=== PATIENT | male | born 1955 ===

== ENCOUNTER 2017-07-07 06:01 | Emergency (ER) | payer BC ==
[2017-07-07 07:42] LABS: Urine Appearance Clear; Urine Blood Negative (Negative); Urine Color Yellow; Urine Ketones Negative (Negative); Urine Protein Negative (Negative); Urine Specific Gravity 1.015 (1.010-1.030); Urine Urobilinogen Negative (Negative)
[2017-07-07 07:51] LABS: ABS Basophils 0.1 10^3/ul (0-0.2); ABS Eosinophils 0.2 10^3/ul (0-0.6); ABS Lymphocytes 0.9 10^3/ul (1.0-4.8); ABS Monocytes 0.6 10^3/ul (0-0.8); ABS Neutrophils 5.5 10^3/ul (1.5-7.7); ABS Nucleated RBC 0 10^3/ul; Eosinophil % 2.3 % (0-6); Hematocrit 41 % (42-52); Hemoglobin 14.2 g/dl (14.0-18.0); Lymphocyte % 12.9 % (25-47); Mean Corpuscular HGB Conc 35 g/dl (31-36); Mean Corpuscular Hemoglobin 32 pg (27-31); Mean Corpuscular Volume 92 fL (80-94); Mean Platelet Volume 7.9 um3 (7.4-10.4); Nucleated Red Blood Cells % 0.1; Platelet Count 227 10^3/ul (150-450); Red Blood Count 4.47 10^6/ul (4.0-5.4); Red Cell Distribution Width 13 % (10.5-15); White Blood Count 7.2 10^3/ul (3.5-10.8)
--- NOTE | 2017-07-07 07:53 | RAD ---
INDICATION: Headaches. Dizziness. COMPARISON: None TECHNIQUE: Noncontrast axial source images were acquired from the skull base to the vertex. FINDINGS: Ventricles/sulci: The ventricles and cisterns are normal in size and configuration for age. Brain parenchyma: There is no focal parenchymal finding, evidence of intracranial mass, or intracranial mass effect. Intracranial hemorrhage:None. Extra-axial spaces: There are no abnormal extra axial fluid collections or evidence of extra-axial mass. Calvarium: There is no calvarial fracture or other calvarial abnormality. Scalp: There is no evidence of scalp or extracalvarial soft tissue abnormality. Paranasal sinuses/mastoid: The paranasal sinuses and mastoid air cells are clear. Other: None. IMPRESSION: NEGATIVE EXAMINATION
[2017-07-07 07:56] LABS: EGFR Non-African American 82.9 (>60)
--- NOTE | 2017-07-07 08:07 | ED ---
Headache - HPI Summary HPI Summary: 61 male presents to ER with complaints of dizziness associated with frontal headache and heartburn/acid reflux that has been on going for the past couple of weeks. States episodes have been intermittent. States 2 days after having his teeth cleaned he began having severe acid reflux which she describes as burning in his epigastric area as well as Center chest. States he's been taking Rolaids and omeprazole which did give him relief. However he still has some burning in his stomach. Denies any chest pain, trouble breathing or shortness of breath. Does admit to chest heaviness during episodes of headaches /dizziness. Describes the headache to be in his forehead and temporal region dull, achy and throbbing. During these episodes he has dizziness where he feels as though the room is spinning. Losing his balance. Denies weakness, numbness, coughing, tingling, nausea, vomiting, recent illness, fever, diarrhea or constipation. No abdominal pain. Has not taken any other medications. Does take echinacea and multivitamin however stopped taking it a week and a half a go as he was concerned this could've been the cause. No past medical history. No significant history for previous acid reflux or migraines. No recent trauma or injury. 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 30 years ago had an episode of pericarditis. No known family history is patient was adopted. No vision changes, weakness, slurred speech, drooping. Has not taken any medication for the headache/dizziness today resolve on their own. States dizziness is exacerbated when changing positions, laying to sitting to standing. - History Of Current Complaint Chief Complaint: EDDizziness Stated Complaint: DIZZINESS Time Seen by Provider: 07/07/17 07:24 Hx Obtained From: Patient, Family/Tobacco Warehouse Manager - Onset/Duration: Sudden Onset, Started weeks ago, Still Present Initially Headache Was: Moderate Currently Pain Is: Current Pain Scale(0-10)= - 2 Timing: Intermittent, Lasting: - Hours to days Character: Dull, Throbbing Location of Headache: Frontal, Temporal Radiates to: and a Aggravating Factor: Position Change Allevating Factors: Medication - Omeprazole, Other (Noted In Comments) - Spontaneous Associated Signs And Symptoms: Dizziness - Allergies/Home Medications Allergies/Adverse Reactions: Allergies Allergy/AdvReac Type Severity Reaction Status Date / Time ampicillin Allergy Anaphylatic Verified 07/07/17 06:05 Shock bacitracin Allergy Anaphylatic Verified 07/07/17 06:05 [From Neosporin Shock ([id number])] neomycin Allergy Anaphylatic Verified 07/07/17 06:05 [From Neosporin Shock ([id number])] Penicillins Allergy Anaphylatic Verified 07/07/17 06:05 Shock polymyxin B Allergy Anaphylatic Verified 07/07/17 06:05 [From Neosporin Shock ([id number])] PMH/Surg Hx/FS Hx/Imm Hx Endocrine/Hematology History: Denies: Hx Anticoagulant Therapy, Hx Diabetes Cardiovascular History: Reports: Other Cardiovascular Problems/Disorders - pericarditis in the 80s Denies: Hx Hypertension, Hx Rheumatic Fever Respiratory History: Denies: Hx Asthma GI History: Denies: Hx Cirrhosis History: Denies: Hx Acute Renal Failure - I Musculoskeletal History: Denies: Hx Arthritis Neurological History: Denies: Hx Migraine - Surgical History Surgery Procedure, Year, and Place: RIGHT HIP REPLACEMENT - Immunization History Immunizations Up to Date: Yes Infectious Disease History: No Infectious Disease History: Denies: Traveled Outside the [place] in Last 30 Days - Family History Known Family History: Positive: None - Social History Alcohol Use: Weekly Substance Use Type: Reports: None Smoking Status (MU): Never Smoked Tobacco Review of Systems Constitutional: Negative Eyes: Negative ENT: Negative Cardiovascular: Other - chest heaviness, burning Respiratory: Negative Positive: Other - burning abdominal discomfort Genitourinary: Negative Musculoskeletal: Negative Skin: Negative Neurological: Other - dizziness Positive: Headache All Other Systems Reviewed And Are Negative: Yes Physical Exam Triage Information Reviewed: Yes Vital Signs On Initial Exam: Initial Vitals Temp Pulse Resp BP Pulse Ox 98.2 F 100 18 143/82 100 07/07/17 06:02 07/07/17 06:02 07/07/17 06:02 07/07/17 06:02 07/07/17 06:02 Vital Signs Reviewed: Yes Appearance: Positive: Well-Appearing, No Pain Distress, Well-Nourished Skin: Positive: Warm, Skin Color Reflects Adequate Perfusion, Dry. Negative: Cold, Numb, Cyanosis @, Pale, Erythema @ Head/Face: Positive: Normal Head/Face Inspection Eyes: Positive: Normal, EOMI, [place], Conjunctiva Clear ENT: Positive: Normal ENT inspection, Hearing grossly normal, Pharynx normal, TMs normal - normal EAC bilaterally, Uvula midline. Negative: Pharyngeal erythema, Nasal congestion, Nasal drainage, TM bulging, TM dull, TM red, Tonsillar swelling, Tonsillar exudate, Sinus tenderness Dental: Negative: Percussion Tenderness @, Cervical Lymphadenopathy Neck: Positive: Supple, Nontender, No Lymphadenopathy Respiratory/Lung Sounds: Positive: Clear to Auscultation, Breath Sounds Present , Other - No audible bruits. Negative: Decreased Breath Sounds, Rales, Rhonchi , Tracheal Deviation, Wheezes, Unable to speak in full sentences Cardiovascular: Positive: Normal, RRR, Pulses are Symmetrical in both Upper and Lower Extremities, Other - No JVD. Negative: Murmur, Rub, Leg Edema Left, Leg Edema Right Abdomen Description: Positive: Nontender, No Organomegaly, Soft. Negative: Bruit, CVA Tenderness (R), CVA Tenderness (L), Distended, Guarding Bowel Sounds: Positive: Present Musculoskeletal: Positive: Normal, Strength/ROM Intact - 5 out of 5 all extremities. Negative: Limited @, Interruption @, Abnormal @, Pain @, Edema Left, Edema Right Neurological: Positive: Normal - normal neuro exam, Sensory/Motor Intact, Alert , Oriented to Person Place, Time, CN Intact II-III, Reflexes Intact, NV Bundle Intact Distally, Normal Gait, Heel to Toe - normal, Finger to Nose - normal, Facial Symmetry, Speech Normal. Negative: Facial Droop, Slurred Speech, Pronator Drift Present - [place] Coma Scale Best Eye Response: 4 - Spontaneous Best Motor Response: 6 - Obeys Commands Best Verbal Response: 5 - Oriented Coma Scale Total: 15 Diagnostics - Vital Signs Vital Signs Temp Pulse Resp BP Pulse Ox 07/07/17 07:00 90 13 99 07/07/17 06:45 92 18 146/86 99 07/07/17 06:15 89 21 153/92 98 07/07/17 06:11 93 25 98 07/07/17 06:02 98.2 F 100 18 143/82 100 - Laboratory Lab Results: Lab Results 07/07/17 07/07/17 07/07/17 Range/Units 07:28 07:29 07:29 WBC 7.2 (3.5-10.8) 10^3/ul RBC 4.47 (4.0-5.4) 10^6/ul Hgb 14.2 (14.0-18.0) g/dl Hct 41 L (42-52) % MCV 92 (80-94) fL MCH 32 H (27-31) pg MCHC 35 (31-36) g/dl RDW 13 (10.5-15) % Plt Count 227 (150-450) 10^3/ul MPV 7.9 (7.4-10.4) um3 Neut % (Auto) 76.3 (38-83) % Lymph % (Auto) 12.9 L (25-47) % [place] % (Auto) 7.7 H (0-7) % Eos % (Auto) 2.3 (0-6) % Baso % (Auto) 0.8 (0-2) % Absolute Neuts (auto) 5.5 (1.5-7.7) 10^3/ul Absolute Lymphs (auto) 0.9 L (1.0-4.8) 10^3/ul Absolute Monos (auto) 0.6 (0-0.8) 10^3/ul Absolute Eos (auto) 0.2 (0-0.6) 10^3/ul Absolute Basos (auto) 0.1 (0-0.2) 10^3/ul Absolute Nucleated RBC 0 10^3/ul Nucleated RBC % 0.1 Sodium 140 (139-145) mmol/L Potassium 3.6 (3.5-5.0) mmol/L Chloride 104 (101-111) mmol/L Carbon Dioxide 27 (22-32) mmol/L Anion Gap 9 (2-11) mmol/L BUN 20 (6-24) mg/dL Creatinine 0.93 (0.67-1.17) mg/dL Est GFR ( Amer) 106.6 (>60) Est GFR (Non-Af Amer) 82.9 (>60) BUN/Creatinine Ratio 21.5 H (8-20) Glucose 118 H (70-100) mg/dL Lactic Acid (0.5-2.0) mmol/L Calcium 10.0 (8.6-10.3) mg/dL Magnesium 2.2 (1.9-2.7) mg/dL Total Bilirubin 0.60 (0.2-1.0) mg/dL AST 34 (13-39) U/L ALT 29 (7-52) U/L Alkaline Phosphatase 76 (34-104) U/L Troponin I Pending Total Protein 7.8 (6.4-8.9) g/dL Albumin 4.9 (3.2-5.2) g/dL Globulin 2.9 (2-4) g/dL Albumin/Globulin Ratio 1.7 (1-3) TSH Pending Urine Color Yellow Urine Appearance Clear Urine pH 5.0 (5-9) Ur Specific [place] 1.015 (1.010-1.030) Urine Protein Negative (Negative) Urine Ketones Negative (Negative) Urine Blood Negative (Negative) Urine Nitrate Negative (Negative) Urine Bilirubin Negative (Negative) Urine Urobilinogen Negative (Negative) Ur Leukocyte Esterase Negative (Negative) Urine Glucose Negative (Negative) Urine Ascorbic Acid * A (Negative) 07/07/17 Range/Units 07:29 WBC (3.5-10.8) 10^3/ul RBC (4.0-5.4) 10^6/ul Hgb (14.0-18.0) g/dl Hct (42-52) % MCV (80-94) fL MCH (27-31) pg MCHC (31-36) g/dl RDW (10.5-15) % Plt Count (150-450) 10^3/ul MPV (7.4-10.4) um3 Neut % (Auto) (38-83) % Lymph % (Auto) (25-47) % [place] % (Auto) (0-7) % Eos % (Auto) (0-6) % Baso % (Auto) (0-2) % Absolute Neuts (auto) (1.5-7.7) 10^3/ul Absolute Lymphs (auto) (1.0-4.8) 10^3/ul Absolute Monos (auto) (0-0.8) 10^3/ul Absolute Eos (auto) (0-0.6) 10^3/ul Absolute Basos (auto) (0-0.2) 10^3/ul Absolute Nucleated RBC 10^3/ul Nucleated RBC % Sodium (139-145) mmol/L Potassium (3.5-5.0) mmol/L Chloride (101-111) mmol/L Carbon Dioxide (22-32) mmol/L Anion Gap (2-11) mmol/L BUN (6-24) mg/dL Creatinine (0.67-1.17) mg/dL Est GFR ( Amer) (>60) Est GFR (Non-Af Amer) (>60) BUN/Creatinine Ratio (8-20) Glucose (70-100) mg/dL Lactic Acid 0.9 (0.5-2.0) mmol/L Calcium (8.6-10.3) mg/dL Magnesium (1.9-2.7) mg/dL Total Bilirubin (0.2-1.0) mg/dL AST (13-39) U/L ALT (7-52) U/L Alkaline Phosphatase (34-104) U/L Troponin I Total Protein (6.4-8.9) g/dL Albumin (3.2-5.2) g/dL Globulin (2-4) g/dL Albumin/Globulin Ratio (1-3) TSH Urine Color Urine Appearance Urine pH (5-9) Ur Specific [place] (1.010-1.030) Urine Protein (Negative) Urine Ketones (Negative) Urine Blood (Negative) Urine Nitrate (Negative) Urine Bilirubin (Negative) Urine Urobilinogen (Negative) Ur Leukocyte Esterase (Negative) Urine Glucose (Negative) Urine Ascorbic Acid (Negative) Result Diagrams: 18 07:29 18 07:29 Lab Statement: Any lab studies that have been ordered have been reviewed, and results considered in the medical decision making process. - CT brain without CT Interpretation: No Acute Changes - NEGATIVE EXAMINATION CT Interpretation Completed By: Radiologist - EKG EKG Cardiac Rate: NL EKG Rhythm: Sinus Rhythm ST Segment: Normal Ectopy: None EKG Interpretation: NSR at 92bpm, borderline prolonged QT Re-Evaluation - Re-Evaluation First Eval Re-Evaluation Time: 08:45 Change: Improved - updated on results was feeling better, stomach much improved and dizziness/headache improved some. will do walk test Second Eval Re-Evaluation Time: 09:14 Change: Improved - was able to change position and walk without difficulty felt better after meclizine Headache Course/Dx - Course Course Of Treatment: EKG obtained and normal sinus rhythm. Obtained CT of the brain and was normal. Labs obtained and unremarkable. Normal vital signs and physical exam findings. Given GI cocktail and meclizine had relief from stomach burning discomfort as well as dizziness. Orthostatic vital signs obtained and negative. Spoke with Dr. Syed about case calli agrees this appears to be vertigo in nature. possible otolith/peripheral vertigo. improved after meclizine and able to ambulate without difficulty. will continue at home until seen by ENT and PCP. Constantin maneuver attempted. Encouraged repeat with specialist/pcp as it may take a few attempts. Patient just had physical and cholesterol checked negative. Normal neuro and cardiorespiratory physical exam/ findings. Does not appear to be the etiology at this time. No risk factors, otherwise health individual. Aware of worsening signs and symptoms to watch out for. No other concerns at this time. - Diagnoses Differential Diagnosis/HQI/PQRI: Migraine, Sinus Headache, Other - vertigo, GERD Provider Diagnoses: Vertigo, GERD (gastroesophageal reflux disease) Discharge - Sign-Out/Discharge Documenting (check all that apply): Discharge/Admit/Transfer - Discharge Plan Condition: Improved Disposition: HOME Prescriptions: Famotidine TAB* [Pepcid 20 MG TAB*] 20 mg PO BID #30 tab Meclizine TAB* [Antivert 12.5 TAB*] 25 mg PO TID PRN #30 tab PRN Reason: Dizziness Patient Education Materials: Gastritis (ED), Vertigo (ED), Gastroesophageal Reflux Disease (ED), Dizziness (ED) Referrals: Deepak Bloom MD [Medical Doctor] - Fatimah Cortez RN [Primary Care Provider] - Additional Instructions: Take prescribed medication as directed to help with symptoms. Make an appointment to follow up with specialist as instructed. Increase fluids and get plenty of rest. Recommend saline rinses to keep airways/sinus patent and moisturized. Ibuprofen/tylenol for any headache. Follow up with PCP. Any new or worsening symptoms please seek medical attention promptly, as we discussed. - Billing Disposition and Condition Condition: IMPROVED Disposition: HOME
[2017-07-07] MEDS ORDERED: Al Hydrox/Mg Hydrox/Simet LIQ* 30 ML UDC PO ONE (08:11)
[2017-07-07] MEDS ORDERED: Lidocaine 2% VISCOUS* 15 ML UDC PO ONE (08:11)
[2017-07-07] MEDS ORDERED: Meclizine TAB* 12.5 MG PO ONE (08:13)
[2017-07-07 09:39] VITALS: BP 158/98
== END 2017-07-07 09:39 | disposition home or self-care (01) ==
LOC: ED 06:01
DX: R42 Dizziness and giddiness (principal); K21.9 Gastro-esophageal reflux disease without esophagitis
CPT/HCPCS: 36415; 70450; 80053; 81003; 83605; 83735; 84443; 84484; 85025; 93005; 99282; A9270-GY